=== PATIENT | male | born 1935 | race Caucasian/White ===

== ENCOUNTER 2018-10-29 14:42 | Emergency (ER) | payer MEDICARE, OTHER ==
--- NOTE | 2018-10-29 16:48 | ED ---
Adult Trauma - HPI Summary HPI Summary: Patient complains of head injury, right elbow pain, right knee pain, neck pain status post mechanical fall down 5 steps with positive head injury on [place]. Denies LOC, anti-coag's, vision change, N/V, altered mental status, dizziness, , headache, back pain. Patient ambulatory on scene. - History of Current Complaint Chief Complaint: EDTraumaMultiple Stated Complaint: HEAD INJ FROM FALL Time Seen by Provider: 10/29/18 14:57 Hx Obtained From: Patient Mechanism of Injury: Fall Ambulatory at the Scene: Yes Loss of Consciousness: no loss of consciousness Onset of Pain: Immediate Onset Severity: Moderate Current Severity: Moderate Pain Intensity: 6 Pain Scale Used: 0-10 Numeric Location: Head, Neck, Extremities Character: Aching Aggravating Factor(s): Movement Alleviating Factor(s): Nothing Associated Signs & Symptoms: Positive: Negative - Allergy/Home Medications Allergies/Adverse Reactions: Allergies Allergy/AdvReac Type Severity Reaction Status Date / Time No Known Allergies Allergy Verified 10/29/18 14:51 Home Medications: Home Medications Aspirin 81 mg PO DAILY WITH MEAL 10/29/18 [History Confirmed 10/29/18] Multiple Vitamins 1 tab PO DAILY 10/29/18 [History Confirmed 10/29/18] PMH/Surg Hx/FS Hx/Imm Hx Endocrine/Hematology History: Denies: Hx Anticoagulant Therapy Cardiovascular History: Denies: Hx Pacemaker/ICD History: Denies: Hx Dialysis Sensory History: Denies: Hx Eye Prosthesis Opthamlomology History: Denies: Hx Legally Blind EENT History: Denies: Hx Deafness Neurological History: Denies: Hx Dementia - Immunization History Date of Tetanus Vaccine: unknown Immunizations Up to Date: Yes Infectious Disease History: No Infectious Disease History: Denies: Traveled Outside the [place] in Last 30 Days - Family History Known Family History: Positive: Non-Contributory - Social History Alcohol Use: Daily Substance Use Type: Reports: None Smoking Status (MU): Never Smoked Tobacco Review of Systems Constitutional: Negative Eyes: Negative ENT: Negative Cardiovascular: Negative Respiratory: Negative Gastrointestinal: Negative Genitourinary: Negative Musculoskeletal: Negative Skin: Negative Neurological: Negative Psychological: Normal All Other Systems Reviewed And Are Negative: Yes Physical Exam - Summary Physical Exam Summary: Normal neuro exam. Hematoma to posterior head with no open wound. No other trauma noted to mouth, face, head. Full range of motion of neck and jaw without pain. No pain with palpation of neck, back, chest wall, abdomen. Lung sounds clear to auscultation bilaterally. Patient moves all 4 extremities freely. Triage Information Reviewed: Yes Vital Signs On Initial Exam: Initial Vitals Temp Pulse Resp BP Pulse Ox 98.8 F 86 18 176/78 95 10/29/18 14:46 10/29/18 14:46 10/29/18 14:46 10/29/18 14:46 10/29/18 14:46 Vital Signs Reviewed: Yes Appearance: Positive: Well-Appearing Skin: Positive: Warm Head/Face: Positive: Normal Head/Face Inspection Eyes: Positive: Normal ENT: Positive: Normal ENT inspection Dental: Negative: Dental Fracture @, Bleeding Neck: Positive: Supple Respiratory/Lung Sounds: Positive: Clear to Auscultation Cardiovascular: Positive: Normal Abdomen Description: Positive: Nontender Musculoskeletal: Positive: Normal Neurological: Positive: Normal Psychiatric: Positive: Normal AVPU Assessment: Alert - [place] Coma Scale Best Eye Response: 4 - Spontaneous Best Motor Response: 6 - Obeys Commands Best Verbal Response: 5 - Oriented Coma Scale Total: 15 Diagnostics - Vital Signs Vital Signs Temp Pulse Resp BP Pulse Ox 10/29/18 15:41 69 138/75 93 10/29/18 15:28 18 10/29/18 15:13 73 95 10/29/18 15:11 73 164/85 95 10/29/18 14:46 98.8 F 86 18 176/78 95 - Laboratory Lab Statement: Any lab studies that have been ordered have been reviewed, and results considered in the medical decision making process. Adult Trauma Course/Dx - Course Course Of Treatment: atient complains of head injury, right elbow pain, right knee pain, neck pain status post mechanical fall down 5 steps with positive head injury on [place]. Denies LOC, anti-coag's, vision change, N/V, altered mental status, dizziness, , headache, back pain. Patient ambulatory on scene. Vital signs within normal limits. CT brain and C-spine negative for acute process. Incidental finding of innumerable mildly prominent cervical lymph nodes with dominant 1.6 cm short axis left posterior triangular node. Consider clinical or ultrasound guided fine needle aspiration for pathologic evaluation. Also noted 0.4 cm noncalcified nodule at the apical segment of the right upper lobe. Insetting of risk factors for bronchogenic carcinoma noncontrast CT follow-up exam in 12 months time would be suggested. Patient advised of incidental findings. - Diagnoses Provider Diagnoses: Head injury, Fall Discharge - Sign-Out/Discharge Documenting (check all that apply): Patient Departure Patient Received Moderate/Deep Sedation with Procedure: No - Discharge Plan Condition: Stable Disposition: HOME Patient Education Materials: Head Injury (ED) Referrals: Pearl Benson MD [Primary Care Provider] - Additional Instructions: Tylenol or ibuprofen for pain. Follow-up with primary care. Incidental findings on CT of neck: 1. Innumerable mildly prominent cervical lymph nodes with dominant 1.6 cm short axis left posterior triangle node. Consider clinical or ultrasound guided fine needle aspiration for pathologic evaluation. 2. 0.4 cm noncalcified nodule at the apical segment of the right upper lobe of lungs. Insetting of risk factors for bronchogenic carcinoma a noncontrast CT follow-up exam in 12 months time would be suggested. - Billing Disposition and Condition Condition: STABLE Disposition: Home
[2018-10-29 17:10] VITALS: BP 170/82
== END 2018-10-29 17:10 | disposition home or self-care (01) ==
LOC: ED 14:42
DX: S09.90XA Unspecified injury of head, initial encounter (principal); S00.03XA Contusion of scalp, initial encounter; M25.521 Pain in right elbow; M25.561 Pain in right knee; M54.2 Cervicalgia; W10.9XXA Fall (on) (from) unspecified stairs and steps, initial encounter; Y92.9 Unspecified place or not applicable; R91.1 Solitary pulmonary nodule; R59.0 Localized enlarged lymph nodes; Z79.82 Long term (current) use of aspirin
CPT/HCPCS: 70450; 72125; 99282

== ENCOUNTER 2018-10-30 10:49 | Emergency (ER) | payer MEDICARE, OTHER ==
[2018-10-30] MEDS ORDERED: Acetaminophen TAB* 325 MG PO ONE (12:10)
[2018-10-30] MEDS ORDERED: Ibuprofen TAB* 400 MG PO ONE (12:10)
--- NOTE | 2018-10-30 12:10 | ED ---
Back Pain - HPI Summary HPI Summary: 83 year old M presenting to [facility] accompanied by with a chief complaint of back pain since 22:00 yesterday. The patient reports achy pain to his lower back and rates the pain 10/10 initially and 8/10 currently in severity. Symptoms aggravated by nothing. Symptoms alleviated by 2 Tylenol, last taken at 01:00 today. Patient denies hematuria, weakness in his legs, numbness in his legs, flank pain. Patient states he fell down 6 concrete stairs landing on his back, hitting his head on the side of a wall. He denies LOC. Patient was seen in the ED yesterday where he had scans of his head and neck, but not his back. Patient states he was unable to sleep last night due to the pain. - History of Current Complaint Chief Complaint: EDBackInjuryPain Stated Complaint: FELL YESTERDAY/BACK PAIN PER PT Time Seen by Provider: 10/30/18 11:58 Hx Obtained From: Patient Onset/Duration: Lasting Hours - 22:00 yesterday, Still Present Timing: Constant Severity Initially: Severe - 10/10 Severity Currently: Moderate Pain Intensity: 8 Pain Scale Used: 0-10 Numeric Aggravating Symptom(s): Nothing Alleviating Symptom(s): OTC Meds - Tylenol Associated Signs And Symptoms: Positive: Negative - hematuria, weakness in his legs, numbness in his legs, flank pain - Allergies/Home Medications Allergies/Adverse Reactions: Allergies Allergy/AdvReac Type Severity Reaction Status Date / Time No Known Allergies Allergy Verified 10/30/18 11:57 PMH/Surg Hx/FS Hx/Imm Hx Endocrine/Hematology History: Denies: Hx Anticoagulant Therapy Cardiovascular History: Reports: Hx Hypertension Denies: Hx Pacemaker/ICD History: Denies: Hx Dialysis Sensory History: Denies: Hx Eye Prosthesis, Hx Legally Blind, Hx Deafness Opthamlomology History: Denies: Hx Eye Prosthesis, Hx Legally Blind Neurological History: Denies: Hx Dementia - Surgical History Surgery Procedure, Year, and Place: colonscopy. prostate cytoscopy - Immunization History Date of Tetanus Vaccine: unknown Infectious Disease History: No Infectious Disease History: Denies: Traveled Outside the [place] in Last 30 Days - Family History Known Family History: Negative: Diabetes - Social History Alcohol Use: Daily Hx Substance Use: No Substance Use Type: Reports: None Hx Tobacco Use: No Smoking Status (MU): Never Smoked Tobacco Review of Systems Negative: flank pain, hematuria Positive: Other - back pain Negative: Weakness, Numbness All Other Systems Reviewed And Are Negative: Yes Physical Exam - Summary Physical Exam Summary: Constitutional: Well-developed, Well-nourished, Alert. (-) Distressed Skin: Warm, Dry HENT: Abrasion to his left parietal scalp Eyes: Conjunctiva normal Neck: Musculoskeletal ROM normal neck. (-) JVD, (-) Stridor Back: Midline lumbar tenderness Cardio: Rhythm regular, rate normal, Heart sounds normal; Intact distal pulses; Radial pulses are 2+ and symmetric. (-) Murmur Pulmonary/Chest wall: Effort normal. (-) Respiratory distress, (-) Wheezes, (-) Rales Abd: Soft, (-) tenderness, (-) Distension, (-) Guarding, (-) Rebound Musculoskeletal: (-) Edema Lymph: (-) Cervical adenopathy Neuro: Alert, Oriented x3 Psych: Mood and affect Normal Triage Information Reviewed: Yes Vital Signs On Initial Exam: Initial Vitals Temp Pulse Resp BP Pulse Ox 99.9 F 86 16 165/77 95 10/30/18 10:55 10/30/18 10:55 10/30/18 10:55 10/30/18 10:55 10/30/18 10:55 Vital Signs Reviewed: Yes Diagnostics - Vital Signs Vital Signs Temp Pulse Resp BP Pulse Ox 10/30/18 10:55 99.9 F 86 16 165/77 95 - Laboratory Lab Statement: Any lab studies that have been ordered have been reviewed, and results considered in the medical decision making process. 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 ED physician has reviewed this report. Re-Evaluation - Re-Evaluation First Eval Re-Evaluation Time: 13:00 Change: Improved Comment: Xray shows SPONDYLOLISTHESIS. Discussed with radiology who agrees that this is old and not traumatic. Patient ambulated in the ED. Pain better controlled Back Pain Course/Dx - Course Assessment/Plan: 83-year-old male who had a mechanical ground level fall down 5 steps yesterday presents with continued back pain. Patient had negative CT brain and C-spine yesterday, reports that his pain has continued although relieved by Tylenol. Physical exam notable for midline lumbar tenderness therefore we'll check a plain film, will also give Tylenol and a lidocaine patch for comfort - Diagnoses Provider Diagnoses: Back pain Discharge - Sign-Out/Discharge Documenting (check all that apply): Patient Departure - Discharge Patient Received Moderate/Deep Sedation with Procedure: No - Discharge Plan Condition: Stable Disposition: HOME Patient Education Materials: Back Pain (ED) Referrals: Pearl Benson MD [Primary Care Provider] - 2 Days Additional Instructions: For pain, you can take 650 mg of Tylenol every 8 hours or 400 mg of ibuprofen every 8 hours. Try topical lidocaine patches. Follow up with your primary care provider in 2 days. Return to the Emergency Department for new or worsening symptoms. - Billing Disposition and Condition Condition: STABLE Disposition: Home - Attestation Statements Document Initiated by Scribe: Yes Documenting Scribe: Leonor Li Provider For Whom Scribe is Documenting (Include Credential): Matt Anguiano MD Scribe Attestation: Leonor Valle, scribed for Matt Anguiano MD on 10/30/18 at 1810. Scribe Documentation Reviewed: Yes Provider Attestation: The documentation as recorded by the Leonor vega accurately reflects the service I personally performed and the decisions made by , Matt Anguiano MD Status of Scribe Document: Viewed
[2018-10-30] MEDS ORDERED: Lidocaine PATCH 5%* 1 PATCH TRANSDERM SCH (13:00)
[2018-10-30 13:16] VITALS: BP 157/64
[2018-10-30] MEDS ORDERED: Lidocaine Patch REMOVE* 1 NOTE MISC SCH (21:00)
== END 2018-10-30 13:15 | disposition home or self-care (01) ==
LOC: ED 10:49
DX: M54.9 Dorsalgia, unspecified (principal); I10 Essential (primary) hypertension; W10.9XXA Fall (on) (from) unspecified stairs and steps, initial encounter; Y92.9 Unspecified place or not applicable; M43.17 Spondylolisthesis, lumbosacral region
CPT/HCPCS: 72100; 99282; A9270-GY

== ENCOUNTER 2019-02-26 10:23 | Inpatient (IN) | payer MEDICARE, OTHER ==
--- OUTSIDE RECORDS SUMMARY | 2019-02-26 10:41 | XMS REPORT | Continuity of Care Document ---
:1935 External Reference #:[id number] Author Name Bambi Tovar DO Address [address] [facility] [place] [address] Care Team Providers Name Role Phone Patient's Choice Care Team Information Director Internal Audit Unavailable Problems Active Problems Provider Date Chronic lymphoid leukemia, disease Onset: Benign prostatic hypertrophy without outflow obstruction Onset: Social History Type Date Description Comments Sex Unknown Allergies, Adverse Reactions, Alerts Description No Information Available Medications Active Medications SIG Qnty Indications Ordering Provider Date Tramadol HCL take one tablet 45tabs Bambi Tovar, 01/28/2019 50mg Tablets by mouth two DO times daily as needed for pain (try half tab first week) Multivitamin Unknown Motrin Ib Unknown Immunizations CPT Code Status Date Vaccine Lot # [id number] Given 01/28/2019 Flu High Dose [id number] Vital Signs Date Vital Result Comment 01/28/2019 11:36am BP Systolic 132 mmHg BP Diastolic 72 mmHg Height 62.75 inches 5'2.75" Weight 159.00 lb Heart Rate 93 /min Body Temperature 98.3 F O2 % BldC Oximetry 98 % BMI (Body Mass Index) 28.4 kg/m2 Results Test Date Facility Test Result H/L Range Note Xray 01/28/2019 [facility] MRI Lumbar Spine W/O <pending> [address] [place] [address] [phone] Procedures Description No Information Available Medical Devices Description No Information Available Encounters Type Date Location Provider Dx Diagnosis Office Visit 01/28/2019 [facility] Bambi Tovar DO M54.41 Lumbago with 11:45a sciatica, right side W10.8xxS Fall (on) (from) other stairs and steps, sequela Z68.28 Body mass index (BMI) 28.0-28.9, adult Assessments Date Code Description Provider 01/28/2019 M54.41 Lumbago with sciatica, right side Bambi Tovar, DO 01/28/2019 W10.8xxS Fall (on) (from) other stairs and steps, Bambi Tovar, DO sequela 01/28/2019 Z68.28 Body mass index (BMI) 28.0-28.9, adult Bambi Tovar, DO Plan of Treatment 01/28/2019 - Bambi Tovar, DOM54.41 Lumbago with sciatica, right sideComments:I am concerned with how much pain he is still in after 3 months and even more how limited his activity is from the baseline he reportsFor pain we discussed not a lot of good options and all come with risks - we will try some Tramadol - discussed risks, benefits and alternativesCan also continue topical creams and motrin prn We will order an MRI of the lumbar spine to further investigate and then willdecide next stepW10.8xxS Fall (on) (from) other stairs and steps, sequelaComments:was clearly a trip and fallZ68.28 Body mass index (BMI) 28.0-28.9, adultAllNew Medication:Tramadol HCL 50 mg - take one tablet by mouth two times daily as needed for pain (try half tab firstweek) Comments:flu shot today Functional Status Description No Information Available Mental Status Description No Information Available Referrals Description No Information Available
--- OUTSIDE RECORDS SUMMARY | 2019-02-26 10:41 | XMS REPORT | Continuity of Care Document ---
:1935 External Reference #:[id number] Author Name Bambi Tovar DO Address [address] [place] [address] [place] [address] Care Team Providers Name Role Phone Patient's, Choice Care Team Information Billing And Insurance Coordinator Unavailable Problems Active Problems Provider Date Chronic lymphoid leukemia, disease Onset: Benign prostatic hypertrophy without outflow obstruction Onset: Social History Type Date Description Comments Sex Unknown Allergies, Adverse Reactions, Alerts Description No Known Drug Allergies Medications Active Medications SIG Qnty Indications Ordering Provider Date Tramadol HCL take one tablet 90tabs Bambi Tovar, 01/28/2019 50mg Tablets by mouth three DO times daily as needed for pain Multivitamin Unknown Immunizations CPT Code Status Date Vaccine Lot # [id number] Given 01/28/2019 Flu High Dose [id number] Vital Signs Date Vital Result Comment 02/19/2019 3:20pm BP Systolic 132 mmHg BP Diastolic 70 mmHg Heart Rate 88 /min Body Temperature 97.1 F O2 % BldC Oximetry 98 % 01/28/2019 11:36am BP Systolic 132 mmHg BP Diastolic 72 mmHg Height 62.75 inches 5'2.75" Weight 159.00 lb Heart Rate 93 /min Body Temperature 98.3 F O2 % BldC Oximetry 98 % BMI (Body Mass Index) 28.4 kg/m2 Results Description No Information Available Procedures Date Code Description Status 02/19/2019 88004 Electrocardiogram Complete Completed Medical Devices Description No Information Available Encounters Type Date Location Provider Dx Diagnosis Office Visit 02/19/2019 3:30p [facility] Harish Tovar, DO R07.89 Other chest pain M54.5 Low back pain S22.000A Wedge compression fracture of unsp thoracic vertebra, init C91.90 Lymphoid leukemia, unspecified not having achieved remission Office Visit 01/28/2019 11:45a [facility] Harish Tovar, M54.41 Lumbago with DO sciatica, right side W10.8xxS Fall (on) (from) other stairs and steps, sequela Z68.28 Body mass index (BMI) 28.0-28.9, adult Assessments Date Code Description Provider 02/19/2019 R07.89 Chest wall pain [facility], DO 02/19/2019 M54.5 Low back pain [facility], DO 02/19/2019 S22.000A Compression fracture of thoracic vertebra [facility], DO 02/19/2019 C91.90 Chronic lymphoid leukemia, disease [facility], DO 01/28/2019 M54.41 Lumbago with sciatica, right side [facility], DO 01/28/2019 W10.8xxS Fall (on) (from) other stairs and steps, [facility], sequela 01/28/2019 Z68.28 Body mass index (BMI) 28.0-28.9, adult [facility], Plan of Treatment No Information Available Functional Status Description No Information Available Mental Status Description No Information Available Referrals Description No Information Available
--- OUTSIDE RECORDS SUMMARY | 2019-02-26 10:41 | XMS REPORT ---
:1935 Author Organization [facility] Care Team Providers Name Role Phone Unavailable Unavailable Unavailable Problems This patient has no known problems. Allergies, Adverse Reactions, Alerts Allergy Allergy Status Severity Reaction(s) Onset Inactive Treating Comments Name Type Date Date Clinician Unknown None Active Unknown None Unknown No Known Allergies For This Patient Medications Ordered Filled Start Stop Current Ordering Indication Dosage Frequency Signature Comments Components Medication Medication Date Date Medication? Clinician (SIG) Name Name No Known No Known No None None None Medications Medications For This For This Patient Patient Procedures This patient has no known procedures. Results This patient has no known results.
[2019-02-26] MEDS ORDERED: NS 0.9% 1000 ML** 1,000 ML IV ONE (10:54)
[2019-02-26] MEDS ORDERED: Morphine 4 MG/ML VIAL (1 ml) 4 MG/ML VIAL IV ONE (10:54)
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
[2019-02-26 12:04] LABS: Hematocrit 33 % (42-52); Mean Corpuscular HGB Conc 33 g/dL (31-36); Mean Corpuscular Hemoglobin 31 pg (27-31); Mean Corpuscular Volume 94 fL (80-94); Mean Platelet Volume 6.3 fL (7.4-10.4); Platelet Count 230 10^3/uL (150-450); Red Blood Count 3.51 10^6 /uL (4.18-5.48); Red Cell Distribution Width 15 % (10-15); White Blood Count 26.4 10^3/uL (3.5-10.8)
[2019-02-26 12:22] LABS: ALT 16 U/L (7-52); AST 34 U/L (13-39); Albumin 3.1 g/dL (3.2-5.2); Albumin/Globulin Ratio 1.3 (1-3); Alkaline Phosphatase 93 U/L (34-104); Anion Gap 5 mmol/L (2-11); BUN/Creatinine Ratio 21.8 (8-20); Blood Urea Nitrogen 29 mg/dL (6-24); C Reactive Protein 119.87 mg/L (<8.01); CO2 Carbon Dioxide 28 mmol/L (22-32); Calcium 8.5 mg/dL (8.6-10.3); Chloride 103 mmol/L (101-111); EGFR African American 62.4 (>60); EGFR Non-African American 51.6 (>60); Globulin 2.3 g/dL (2-4); Glucose 111 mg/dL (70-100); Potassium 4.6 mmol/L (3.5-5.0); Sodium 136 mmol/L (135-145); Total Protein 5.4 g/dL (6.4-8.9)
[2019-02-26] MEDS ORDERED: Morphine INJ* 2 MG/ML 1 ML SYRINGE (TWO MG - NEW SYRINGE VERSION) IV PRN (13:24)
[2019-02-26] MEDS ORDERED: NS 0.9% 1000 ML** 1,000 ML IV SCH (13:30)
[2019-02-26 14:06] LABS: ABS Basophils 0.1 10^3/ul (0-0.2); ABS Eosinophils 0.1 10^3/ul (0-0.6); ABS Lymphocytes 21.8 10^3/ul (1.0-4.8); ABS Monocytes 0.1 10^3/ul (0-0.8); ABS Neutrophils 4.3 10^3/ul (1.5-7.7); Eosinophil % 0.2 %; Lymphocyte % 82.5 %; Nucleated Red Blood Cells % 0.1
[2019-02-26] MEDS: Enoxaparin(*) 40 MG/0.4 ML SYR SUBCUT SCH (14:25)
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
[2019-02-26] MEDS ORDERED: Iodixanol* (CONTRAST) 320 MG/ML 100 ML SDV IV ONE (15:15)
[2019-02-26] MEDS ORDERED: fentaNYL* 50 MCG/ML 2 ML VIAL (100 MCG VIAL) ONE (15:48)
[2019-02-26] MEDS ORDERED: Naloxone* 0.4 MG/ML 1 ML VIAL ONE (15:48)
[2019-02-26] MEDS: oxyCODONE SR TAB(*) 10 MG TAB.SR PO SCH (20:00)
[2019-02-26 20:32] LABS: Urine Appearance Clear; Urine Bacteria Absent (Absent); Urine Bilirubin Negative (Negative); Urine Blood 2+ (Negative); Urine Color Yellow; Urine Glucose Negative (Negative); Urine Ketones Negative (Negative); Urine Nitrite Negative (Negative); Urine Protein Negative (Negative); Urine Red Blood Cell 2+(6-10/hpf) (Absent); Urine Specific Gravity 1.033 (1.010-1.030); Urine Squamous Epithelial Cell Present (Absent); Urine Urobilinogen Negative (Negative); Urine White Blood Cell Absent (Absent)
[2019-02-27 07:00] LABS: Activated Partial Thrombo Time 36.3 seconds (26.0-38.0); INR 1.35 (0.82-1.09)
[2019-02-27 07:06] LABS: Albumin 3.2 g/dL (3.2-5.2); Albumin/Globulin Ratio 1.3 (1-3); Calcium 9.1 mg/dL (8.6-10.3); EGFR African American 75.4 (>60); EGFR Non-African American 62.3 (>60); Globulin 2.4 g/dL (2-4); Potassium 4.2 mmol/L (3.5-5.0); Total Bilirubin 0.7 mg/dL (0.2-1.0); Total Protein 5.6 g/dL (6.4-8.9)
[2019-02-27 07:53] LABS: ABS Eosinophils 0.1 10^3/ul (0-0.6); ABS Lymphocytes 22.4 10^3/ul (1.0-4.8); ABS Monocytes 0.1 10^3/ul (0-0.8); ABS Neutrophils 4.3 10^3/ul (1.5-7.7); Hematocrit 34 % (42-52); Hemoglobin 11.4 g/dL (14.0-18.0); Mean Corpuscular HGB Conc 33 g/dL (31-36); Mean Corpuscular Hemoglobin 31 pg (27-31); Mean Corpuscular Volume 94 fL (80-94); Mean Platelet Volume 6.3 fL (7.4-10.4); Platelet Count 257 10^3/uL (150-450); Red Blood Count 3.65 10^6 /uL (4.18-5.48); Red Cell Distribution Width 15 % (10-15)
[2019-02-27 07:54] LABS: ABS Basophils 0.1 10^3/ul (0-0.2); Eosinophil % 0.3 %
[2019-02-27] MEDS: oxyCODONE SR TAB(*) 10 MG TAB.SR PO SCH ×2 (09:18→20:59)
[2019-02-27] MEDS ORDERED: traZODone TAB* 50 MG TAB PO PRN (11:04)
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
[2019-02-27] MEDS: oxyCODONE TAB* 5 MG TAB PO PRN (11:33)
[2019-02-27] MEDS: Enoxaparin(*) 40 MG/0.4 ML SYR SUBCUT SCH (14:29)
[2019-02-27] MEDS: Acetaminophen TAB* 325 MG PO PRN (21:05)
[2019-02-28 05:57] LABS: Hematocrit 34 % (42-52); Mean Corpuscular HGB Conc 33 g/dL (31-36); Mean Corpuscular Hemoglobin 31 pg (27-31); Mean Corpuscular Volume 94 fL (80-94); Mean Platelet Volume 6.5 fL (7.4-10.4); Platelet Count 262 10^3/uL (150-450); Red Cell Distribution Width 15 % (10-15); White Blood Count 24.6 10^3/uL (3.5-10.8)
[2019-02-28 06:13] LABS: Albumin/Globulin Ratio 1.2 (1-3); BUN/Creatinine Ratio 22.9 (8-20); Calcium 8.8 mg/dL (8.6-10.3); EGFR African American 71.7 (>60); EGFR Non-African American 59.2 (>60); Globulin 2.5 g/dL (2-4); Potassium 4.1 mmol/L (3.5-5.0); Total Bilirubin 0.5 mg/dL (0.2-1.0); Total Protein 5.5 g/dL (6.4-8.9)
[2019-02-28 06:55] LABS: ABS Eosinophils 0.1 10^3/ul (0-0.6); ABS Lymphocytes 20.3 10^3/ul (1.0-4.8); ABS Monocytes 0.2 10^3/ul (0-0.8); ABS Neutrophils 3.9 10^3/ul (1.5-7.7); Eosinophil % 0.4 %; Lymphocyte % 82.5 %
[2019-02-28] MEDS: Acetaminophen TAB* 325 MG PO PRN ×2 (08:55→19:59)
[2019-02-28] MEDS: oxyCODONE SR TAB(*) 10 MG TAB.SR PO SCH ×2 (08:56→20:00)
--- NOTE | 2019-02-28 10:29 | PN ---
Progress Note - Progress Note Date of Service: 02/28/19 SOAP: Subjective: []Review of chart indicates that Mr. Smith is doing very well. He has not been taking pain medications routinely, at one point declining PRN oxcycodone in favor of taking a nap. Last PRN oxycodone administered yesterday @ 1133, appears to favor PRN acetaminophen. No indication of sedation or confusion with current narcotics. Nursing note indicates he slept better last night and did not need a sleep aide. Review of PT notes indicate excellent mobility with minimal assist, safety with bending, turning, and able to navigate a step. Mr. Smith tells me he is a little uncomfortable in the chair, but feels he has been "OK." entered room during assessment and states multiple concerns about d/c. Yesterday had indicated things could be moved from upstairs to downstairs, however today she does not know if this is possible and then requests a hospital bed d/t difficulty with comfort in bed that does not assist with position changes. Medications: Acetaminophen (Tylenol Tab*) 650 mg PO Q4H PRN PRN Reason: mild pain/fever Last Admin: 02/28/19 08:55 Dose: 650 mg Enoxaparin Sodium (Lovenox(*)) 40 mg SUBCUT Q24H [facility] Last Admin: 02/27/19 14:29 Dose: 40 mg Morphine Sulfate (Morphine Inj (Syringe))*) 4 mg IV Q2H PRN PRN Reason: PAIN - SEVERE Oxycodone HCl (Roxycodone Tab*) 10 mg PO Q4H PRN PRN Reason: PAIN - MODERATE Last Admin: 02/27/19 11:33 Dose: 10 mg Oxycodone HCl (Oxycontin(*)) 10 mg PO Q12HR [facility] Last Admin: 02/28/19 08:56 Dose: 10 mg Trazodone HCl (Desyrel Tab*) 50 mg PO BEDTIME PRN PRN Reason: INSOMNIA Objective: [] Vital Signs Temp Pulse Resp BP Pulse Ox 98.3 F 82 18 132/62 95 02/28/19 08:00 02/28/19 08:00 02/28/19 08:56 02/28/19 08:00 02/28/19 08:00 A&Ox3 in no acute distress, involved in plan. CLAROS Resp. even and non-labored without audible wheeze or rhonchi No peripheral edema Limited assessment r/t majority of time spent with discharge planning Laboratory Results - last 24 hr 02/27/19 02/28/19 02/28/19 06:43 05:03 05:03 WBC 24.6 H RBC 3.60 L Hgb 11.0 L Hct 34 L MCV 94 MCH 31 MCHC 33 RDW 15 Plt Count 262 MPV 6.5 L Neut % (Auto) 15.9 Lymph % (Auto) 82.5 [place] % (Auto) 1.0 Eos % (Auto) 0.4 Baso % (Auto) 0.2 Absolute Neuts (auto) 3.9 Absolute Lymphs (auto) 20.3 H Absolute Monos (auto) 0.2 Absolute Eos (auto) 0.1 Absolute Basos (auto) 0.0 Absolute Nucleated RBC 0.0 Nucleated RBC % 0.0 Hem Pathologist Commnt Sodium 136 Potassium 4.1 Chloride 102 Carbon Dioxide 26 Anion Gap 8 BUN 27 H Creatinine 1.18 H Est GFR ( Amer) 71.7 Est GFR (Non-Af Amer) 59.2 BUN/Creatinine Ratio 22.9 H Glucose 131 H Calcium 8.8 Total Bilirubin 0.50 AST 31 ALT 24 Alkaline Phosphatase 115 H Total Protein 5.5 L Albumin 3.0 L Globulin 2.5 Albumin/Globulin Ratio 1.2 Assessment/Plan: []83 yo male admitted with intractable pain 2/2 lytic lesions s/p biopsy 02/26 doing very well with current oral pain meds needing minimal rescue meds, despite cont.'d c/o pain 11/24. At this point he has no acute needs and is safe for d/c home with oral pain meds and home nursing service. His is very anxious about d/c without more support and case management will assist with d/c planning for safety in the home. Plan: []Hopeful for d/c this afternoon - VNS with med assist/assess and PT in the home - Hospital bed reasonable d/t significant pain 2/2 lytic lesions requiring frequent repositioning FU with oncology early next week to review pathology and discuss options for plan of care
[2019-02-28] MEDS: oxyCODONE TAB* 5 MG TAB PO PRN (13:40)
[2019-02-28] MEDS: Enoxaparin(*) 40 MG/0.4 ML SYR SUBCUT SCH (13:40)
[2019-03-01] MEDS: oxyCODONE TAB* 5 MG TAB PO PRN (01:10)
[2019-03-01] MEDS: Acetaminophen TAB* 325 MG PO PRN (01:11)
[2019-03-01] MEDS: oxyCODONE SR TAB(*) 10 MG TAB.SR PO SCH (09:55)
[2019-03-01 11:20] VITALS: BP 129/57
--- NOTE | 2019-03-01 11:52 | DS ---
CC: Dr. Bambi Tovar; Dr. Curt Mendoza * DATE OF ADMISSION: 02/26/2019. DATE OF DISCHARGE: 03/01/2019. PRIMARY CARE PHYSICIAN: Dr. Bambi Tovar. PRIMARY ONCOLOGIST: Dr. Curt Mendoza. ATTENDING PHYSICIAN: Dr. Tony Cho * (dictated by DAVID Santos). DISCHARGING PROVIDER: DAVID Santos. PRIMARY DISCHARGE DIAGNOSES: 1. Intractable pain secondary to unspecific metastatic carcinoma with pathology results pending. 2. CLL. DISCHARGE MEDICATIONS: 1. Multivitamin one tablet p.o. daily. 2. OxyContin 10 mg p.o. q.12 hours. 3. Acetaminophen 650 mg p.o. q.4 hours as needed for pain or fever. 4. Oxycodone immediate release 10 mg p.o. q.4 hours as needed for pain. HOSPITAL IMAGIN. CT guided bone biopsy. 2. Pathology from pelvic bone biopsy is pending. HOSPITAL COURSE: This is an 83-year-old gentleman with a known history of stage [address] Curt Mendoza who presented after a fall approximately one to two months ago who had an incidental finding of a lung mass. The patient subsequently underwent full staging scans and was found to have multiple lytic bony lesions and patient complains of increasing pain. He was seen by Dr. Mendoza in clinic, prescribed opiate analgesics of which patient took one dose, but found himself to be too weak to make it up the stairs, subsequently falling onto the landing. His contacted EMS at that time who helped to bring him to bed and he was subsequently unable to leave the second floor of his home after that time. After much coaxing from the Oncology office, EMS was contacted again, subsequently transported the patient to the emergency department for further evaluation and symptom management. Upon reaching the emergency department, the patient was found to have a leukocytosis, primary lymphocytes consistent with his known CLL and small rise in his creatinine from baseline. He was subsequently treated with IV Morphine with good effect in the emergency department and admitted for pain control. 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 This does appear to be a malignant process and unlikely to be related to his CLL. DISPOSITION AND FOLLOW-UP PLAN: The patient is being discharged to subacute rehab at [facility] in stable condition. He will participate with physical therapy there and continue oral analgesics which he has been tolerating well here at the hospital. He will follow-up with Dr. Mendoza next week to review pathology results and discuss treatment options based on those results. DAVID SANTOS [id number]/[facility] #: [id number] PAWAN
== END 2019-03-01 13:08 | DRG 940 ==
LOC: ED 10:23 → MEDTELE 13:24
PROVIDERS: ADMIT Internal Medicine Hematology & Oncology; ATTEND Internal Medicine Hematology & Oncology
PROC: 0QB23ZX Excision of Right Pelvic Bone, Percutaneous Approach, Diagnostic (ICD-10-PCS; principal; 2019-02-26)
DX: G89.3 Neoplasm related pain (acute) (chronic) (principal); C91.10 Chronic lymphocytic leukemia of B-cell type not having achieved remission; C79.9 Secondary malignant neoplasm of unspecified site; E78.5 Hyperlipidemia, unspecified; G89.29 Other chronic pain; M54.9 Dorsalgia, unspecified; S80.812A Abrasion, left lower leg, initial encounter; W19.XXXA Unspecified fall, initial encounter; R53.1 Weakness; G47.00 Insomnia, unspecified; R91.8 Other nonspecific abnormal finding of lung field; Z72.89 Other problems related to lifestyle; Y92.009 Unspecified place in unspecified non-institutional (private) residence as the place of occurrence of the external cause
CPT/HCPCS: 20225; 36415; 77012; 80053; 81003; 81015; 81445; 83605; 83690; 85025; 85060; 85610; 85730; 86140; 88172; 88173; 88184; 88187; 88188; 88189; 88305; 88341; 88342; 88360; 93005; 96374; 99233; 99239; 99284; A9270-GY; G8978-GP-CK; G8979-GP-CI; G8987-GO-CK; G8988-GO-CI; J1650; J2270; J2310; J3010